=== PATIENT | female | born 1990 | race Caucasian/White ===

== ENCOUNTER 2019-08-08 02:11 | Emergency (ER) | payer OTHER ==
[2019-08-08 02:51] VITALS: BP 123/81; PULSE 92; TEMP 97.6; BMI 32.7
--- NOTE | 2019-08-08 02:52 | PDOC ---
History of Present Illness - General Chief Complaint: Vomiting/Diarrhea Stated Complaint: DIARRHEA/NAUSEA/STOMACH PAINS Time Seen by Provider: 08/08/19 02:51 History Source: Patient Exam Limitations: No Limitations - History of Present Illness Initial Comments: 08/08/19 03:04 28yF w PMHx anxiety presenting w nausea/vomiting/diarrhea/mild epigastric pain. Diarrhea started yesterday morning after taking Plan B. Subsequently started vomiting multiple times with mild epigastric pain yesterday evening. Had 1 alcoholic drink yesterday none day before. Denies fever, cough, chest pain, SOB , urinary complaints. Past History - Past Medical History Allergies/Adverse Reactions: Allergies Allergy/AdvReac Type Severity Reaction Status Date / Time No Known Allergies Allergy Verified 08/08/19 02:49 Home Medications: Ambulatory Orders Fluoxetine HCl [Prozac] 10 mg PO DAILY 08/08/19 Ondansetron [Zofran *Odt*] 4 mg SL TID #10 od.tablet 08/08/19 clonazePAM [Klonopin -] 0.5 mg PO DAILY 08/08/19 COPD: No Psychiatric Problems: Yes (anxiety, depression) - Psycho Social/Smoking Cessation Hx Smoking History: Never smoked Hx Alcohol Use: No Drug/Substance Use Hx: No Review of Systems - Review of Systems Constitutional: No: Chills, Fever HEENTM: No: Eye Pain, Nose Pain, Throat Pain Respiratory: No: Cough, Shortness of Breath Cardiac (ROS): No: Chest Pain, Palpitations ABD/GI: Yes: Diarrhea, Nausea, Vomiting. No: Abdominal Distended, Constipated : No: Burning, Dysuria Musculoskeletal: No: Back Pain, Joint Pain Integumentary: No: Bruising, Flushing Neurological: No: Headache, Seizure Psychiatric: No: Anxiety, Depression Endocrine: No: Excessive Sweating, Intolerance to Cold, Intolerance to Heat Hematologic/Lymphatic: No: Anemia, Blood Clots *Physical Exam - Vital Signs Last Vital Signs Temp Pulse Resp BP Pulse Ox 97.6 F 92 H 18 123/81 100 08/08/19 02:45 08/08/19 02:45 08/08/19 02:45 08/08/19 02:45 08/08/19 02:45 - Physical Exam General Appearance: Yes: Nourished, Appropriately Dressed, Mild Distress HEENT: positive: EOMI, MARKY, Normal Voice, Hearing Grossly Normal. negative: Scleral Icterus (R), Scleral Icterus (L) Respiratory/Chest: positive: Lungs Clear, Normal Breath Sounds. negative: Chest Tender, Respiratory Distress Cardiovascular: positive: Regular Rhythm, S1, S2, Tachycardia. negative: Edema , Murmur Gastrointestinal/Abdominal: positive: Normal Bowel Sounds, Tender (minimal epigastric), Flat, Soft. negative: Organomegaly Musculoskeletal: negative: CVA Tenderness (R), CVA Tenderness (L) Extremity: positive: Delayed Capillary Refill Integumentary: positive: Normal Color, Dry Neurologic: positive: paper bag maker II-XII NML intact, Fully Oriented, Alert, Normal Response, Responsive. negative: Sensory Deficit, Confused, Disoriented ED Treatment Course - LABORATORY CBC & Chemistry Diagram: 08/08/19 04:05 08/08/19 05:00 Medical Decision Making - Medical Decision Making 08/08/19 04:14 28yF w PMHx anxiety presenting w 1d nausea/vomiting/diarrhea/mild epigastric pain. Gastroenteritis. Low concern for (recently took Plan B, neg HCG) vs cholecystitis (neg rios) vs pancreatitis (normal lipase) Given 1L NS, zofran, pepcid, maalox DC home w zofran Discharge - Discharge Information Problems reviewed: Yes Clinical Impression/Diagnosis: Gastroenteritis Condition: Improved Disposition: HOME - Admission No - Additional Discharge Information Prescriptions: Ondansetron [Zofran *Odt*] 4 mg SL TID #10 od.tablet - Follow up/Referral - Patient Discharge Instructions Patient Printed Discharge Instructions: DI for Viral Gastroenteritis -- Adult Additional Instructions: Take the prescribed zofran if you are vomiting Drink lots of water - Post Discharge Activity
--- NOTE | 2019-08-08 02:55 | PDOC ---
Attending Attestation - Resident Resident Name: [email or web address] - ED Attending Attestation I have performed the following: I have examined & evaluated the patient, The case was reviewed & discussed with the resident, I agree w/resident's findings & plan - HPI HPI: 08/08/19 02:59 Pt comes with vomiting after taking plan B OTC; Now N/V 08/08/19 03:04 - Physicial Exam PE: 08/08/19 06:42 Pt has normal bowel sounds; no rebound and no guarding No flank pain no fever no chills Pt has normal HEENT neuro intact; no rahses - Medical Decision Making 08/08/19 06:43 Pt will be sent home with oral hydration. She has normal labs bhcg is <1
[2019-08-08] MEDS ORDERED: SODIUM CHLORIDE 0.9% 500 ML INFUS.BAG IV ONE (03:01)
[2019-08-08] MEDS ORDERED: FAMOTIDINE 20 MG/50 ML IVPB 20 MG/50 ML MG IVPB ONE ×2 (03:01→04:02)
[2019-08-08] MEDS ORDERED: ONDANSETRON 4 MG/2 ML VIAL IVPUSH ONE (03:01)
[2019-08-08] MEDS ORDERED: MAG HYDROX/AL HYDROX/SIMETH 30 ML UNIT-DOSE CUP PO ONE (03:01)
[2019-08-08] MEDS ORDERED: ONDANSETRON 4 MG/2 ML VIAL ONE (04:02)
[2019-08-08] MEDS ORDERED: MAG HYDROX/AL HYDROX/SIMETH 30 ML UNIT-DOSE CUP ONE (04:02)
[2019-08-08 04:24] LABS: BASO % 0.1 % (0-2.0); EOS % 2.7 % (0-4.5); HEMATOCRIT 43.4 % (32.4-45.2); HEMOGLOBIN 14.8 GM/dL (10.7-15.3); LYMPH % 8.3 % (8-40); MCH 33.7 pg (25.7-33.7); MCHC 34.2 g/dl (32.0-36.0); MEAN CELL VOLUME 98.7 fl (80-96); MEAN PLT VOLUME 8.4 fl (7.5-11.1); MONO % 4.7 % (3.8-10.2); NEUT % 84.2 % (42.8-82.8); PLATELET COUNT 268 K/MM3 (134-434); RDW 13.5 % (11.6-15.6); WHITE BLOOD COUNT 9.5 K/mm3 (4.0-10.0)
[2019-08-08 06:09] LABS: BILIRUBIN,TOTAL 0.5 mg/dL (0.2-1); CALCIUM 8.3 mg/dL (8.5-10.1); CREATININE 0.7 mg/dL (0.55-1.3); POTASSIUM 4.4 mmol/L (3.5-5.1)
== END 2019-08-08 06:54 | disposition home or self-care (01) ==
LOC: JER 02:11
PROC: 3E033GC Introduction of Other Therapeutic Substance into Peripheral Vein, Percutaneous Approach (ICD-10-PCS; principal; 2019-08-08)
PROC: 3E033GC Introduction of Other Therapeutic Substance into Peripheral Vein, Percutaneous Approach (ICD-10-PCS; 2019-08-08)
DX: K52.9 Noninfective gastroenteritis and colitis, unspecified (principal)
CPT/HCPCS: 36415; 80053; 83690; 84702; 85025; 87086; 96365; 96375; 99282-25

== ENCOUNTER 2022-09-17 08:27 | Inpatient (IN) | payer OTHER ==
[2022-09-17 09:01] VITALS: BMI 33.0
[2022-09-17] MEDS ORDERED: LOPERAMIDE HCL 2 MG CAPSULE PO PRN (09:21)
[2022-09-17] MEDS ORDERED: guaiFENesin 600 MG TABLET.ER (FP) PO PRN (09:21)
[2022-09-17] MEDS ORDERED: ONDANSETRON *ODT* 4 MG TABLET SL PRN (09:21)
[2022-09-17] MEDS ORDERED: MAG HYDROX/AL HYDROX/SIMETH 30 ML UNIT-DOSE CUP PO PRN (09:21)
[2022-09-17] MEDS ORDERED: BENZOCAINE/MENTHOL (CHLORASEPTIC ) LOZENGE MM PRN (09:21)
[2022-09-17] MEDS ORDERED: ACETAMINOPHEN 325 MG TABLET (FP) PO PRN (09:21)
[2022-09-17] MEDS ORDERED: BENZONATATE 200 MG CAPSULE PO PRN (09:21)
[2022-09-17] MEDS ORDERED: DICYCLOMINE HCL 10 MG CAPSULE PO PRN (09:21)
[2022-09-17] MEDS ORDERED: diazePAM 5 MG TABLET PO PRN (09:21)
[2022-09-17] MEDS ORDERED: MAGNESIUM HYDROX 2400MG/30ML ORAL SUSPENSION 30 ML CUP PO PRN (09:21)
[2022-09-17] MEDS ORDERED: IBUPROFEN 600 MG TABLET (FP) PO PRN (09:21)
[2022-09-17] MEDS ORDERED: hydrOXYzine PAMOATE 25 MG CAPSULE (FP) PO PRN (09:21)
[2022-09-17] MEDS ORDERED: IBUPROFEN 400 MG TABLET (FP) PO PRN (09:21)
[2022-09-17] MEDS ORDERED: POLYETHYLENE GLYCOL (HEALTHYLAX) 3350 17 GM PACKET PO PRN (09:21)
[2022-09-17] MEDS ORDERED: BISMUTH SUBSALICYLATE 524 MG/30 ML PO PRN (09:21)
[2022-09-17] MEDS ORDERED: diazePAM 5 MG TABLET ONE (11:00)
[2022-09-17] MEDS ORDERED: PRENATAL VITAMINS W/ FOLIC ACID TABLET (FP) PO ONE (11:01)
[2022-09-17] MEDS: diazePAM 5 MG TABLET PO SCH ×3 (11:03→22:45)
[2022-09-17] MEDS: PRENATAL VITAMINS W/ FOLIC ACID TABLET (FP) PO SCH (11:03)
[2022-09-17 14:47] LABS: HEMATOCRIT 41.7 % (32.4-45.2); HEMOGLOBIN 14.5 GM/dL (10.7-15.3); MCH 34.1 pg (25.7-33.7); MCHC 34.7 g/dl (32.0-36.0); MEAN CELL VOLUME 98.3 fl (80-96); MEAN PLT VOLUME 7.9 fl (7.5-11.1); PLATELET COUNT 362 10^3/uL (134-434); RBC 4.24 M/mm3 (3.60-5.2); RDW 13.4 % (11.6-15.6); WHITE BLOOD COUNT 8.4 K/mm3 (4.0-10.0)
[2022-09-17 14:48] LABS: ALBUMIN 4.2 g/dl (3.4-5.0); BLOOD UREA NITROGEN 10.9 mg/dL (7-18)
[2022-09-17 14:51] LABS: CREATININE 0.8 mg/dL (0.55-1.3)
[2022-09-17 14:53] LABS: BILIRUBIN,TOTAL 0.4 mg/dL (0.2-1); TOT PROT 7.6 g/dl (6.4-8.2)
[2022-09-17] MEDS ORDERED: SUVOREXANT 10 MG TABLET PO PRN (20:00)
[2022-09-17] MEDS: METHOCARBAMOL 500 MG TABLET PO PRN (20:39)
[2022-09-17] MEDS ORDERED: THIAMINE HCL 100 MG TABLET (FP) PO SCH (22:00)
[2022-09-17] MEDS ORDERED: MELATONIN 5 MG TABLETS PO SCH (22:00)
[2022-09-18] MEDS: diazePAM 5 MG TABLET PO SCH ×3 (05:28→18:32)
[2022-09-18 09:29] VITALS: RESP 18
[2022-09-18] MEDS ORDERED: FLUoxetine HCL 20 MG CAPSULE PO SCH (10:00)
[2022-09-18] MEDS: PRENATAL VITAMINS W/ FOLIC ACID TABLET (FP) PO SCH (11:09)
[2022-09-18] MEDS: METHOCARBAMOL 500 MG TABLET PO PRN (11:10)
[2022-09-18 18:20] VITALS: BP 128/77; PULSE 69; TEMP 98
[2022-09-19] MEDS ORDERED: diazePAM 5 MG TABLET PO SCH (06:00)
[2022-09-20] MEDS ORDERED: diazePAM 5 MG TABLET PO SCH (06:00)
[2022-09-21] MEDS ORDERED: diazePAM 5 MG TABLET PO ONE (06:00)
== END 2022-09-18 17:31 | disposition left against medical advice (07) | DRG 770 ==
LOC: YASAS 08:27 → Y6N 10:20
PROVIDERS: ADMIT Allergy & Immunology; ATTEND Surgery
PROC: HZ2ZZZZ Detoxification Services for Substance Abuse Treatment (ICD-10-PCS; principal; 2022-09-17)
DX: F10.230 Alcohol dependence with withdrawal, uncomplicated (principal); F13.230 Sedative, hypnotic or anxiolytic dependence with withdrawal, uncomplicated; F14.20 Cocaine dependence, uncomplicated; F12.20 Cannabis dependence, uncomplicated; F19.282 Other psychoactive substance dependence with psychoactive substance-induced sleep disorder; F19.280 Other psychoactive substance dependence with psychoactive substance-induced anxiety disorder; F41.8 Other specified anxiety disorders; Z86.69 Personal history of other diseases of the nervous system and sense organs; Z91.410 Personal history of adult physical and sexual abuse; Z88.2 Allergy status to sulfonamides
CPT/HCPCS: 36415; 80053; 81025; 85027; 86780; 87811; 93005; 93010; C9803-CS; U0003; U0005

== ENCOUNTER 2022-12-22 13:17 | Inpatient (IN) | payer OTHER ==
[2022-12-22 13:27] VITALS: BMI 30.4
[2022-12-22 14:55] LABS: BASO % 0.4 % (0-2.0); EOS % 2.6 % (0-4.5); HEMATOCRIT 39.6 % (32.4-45.2); HEMOGLOBIN 13.4 GM/dL (10.7-15.3); LYMPH % 43.1 % (8-40); MCH 32.2 pg (25.7-33.7); MCHC 33.8 g/dl (32.0-36.0); MEAN CELL VOLUME 95.2 fl (80-96); MEAN PLT VOLUME 7.3 fl (7.5-11.1); MONO % 5.2 % (3.8-10.2); NEUT % 48.7 % (42.8-82.8); PLATELET COUNT 356 10^3/uL (134-434); RBC 4.16 M/mm3 (3.60-5.2); RDW 13.5 % (11.6-15.6); WHITE BLOOD COUNT 8.5 K/mm3 (4.0-10.0)
[2022-12-22 14:59] LABS: EPI CELLS >36 /uL (0-25.1); HYALINE CASTS 1 /uL (0-3.1); URINE APPEARANCE CLEAR; URINE BACTERIA 2889 /uL (0-1359); URINE BILIRUBIN NEGATIVE (NEGATIVE); URINE COLOR YELLOW; URINE GLUCOSE (UA) NEGATIVE (NEGATIVE); URINE KETONE 1+ (NEGATIVE); URINE LEUK ESTERASE TRACE (NEGATIVE); URINE NITRITE NEGATIVE (NEGATIVE); URINE PROTEIN NEGATIVE (NEGATIVE); URINE RBC 8 /uL (0-23.9); URINE UROBILINOGEN 0.2 mg/dL (0.2-1.0); URINE WBC 34 /uL (0-25.8)
[2022-12-22] MEDS ORDERED: LORazepam 2 MG TABLET PO ONE (15:01)
[2022-12-22] MEDS ORDERED: LORazepam 2 MG/ML SDV VIAL IVPUSH ONE (15:01)
[2022-12-22 15:02] LABS: INR 1.07 (0.83-1.09); PROTHROMBIN TIME (PATIENT) 12.4 SEC (9.7-13.0)
[2022-12-22 15:05] LABS: ACTIVATED PTT 35.4 SECONDS (25.2-36.5)
[2022-12-22 15:06] LABS: COCAINE, UR NEGATIVE (NEGATIVE); METHADONE, UR NEGATIVE (NEGATIVE); OPIATES, URI NEGATIVE (NEGATIVE); PHENCYCLIDINE,URINE NEGATIVE (NEGATIVE); URINE BARBITURATES NEGATIVE (NEGATIVE)
[2022-12-22 15:07] LABS: CHLORIDE 108 mmol/L (98-107); POTASSIUM 4.3 mmol/L (3.5-5.1); SODIUM 140 mmol/L (136-145)
[2022-12-22 15:09] LABS: ALBUMIN 3.8 g/dl (3.4-5.0); ANION GAP 9 MMOL/L (8-16); BLOOD UREA NITROGEN 16.9 mg/dL (7-18); CO2 24 mmol/L (21-32); GLUCOSE,RANDOM 77 mg/dL (74-106)
[2022-12-22 15:12] LABS: CREATININE 0.6 mg/dL (0.55-1.3); SGOT/AST 16 U/L (15-37); SGPT/ALT 18 U/L (13-61)
[2022-12-22] MEDS ORDERED: LORazepam 0.5 MG TABLET ONE (15:13)
[2022-12-22 15:14] LABS: BILIRUBIN,TOTAL 0.5 mg/dL (0.2-1); TOT PROT 6.9 g/dl (6.4-8.2); URINE AMPHETAMINES NEGATIVE (NEGATIVE); URINE BENZODIAZEPINES POSITIVE (NEGATIVE)
[2022-12-22 15:15] LABS: ALK PHOS 49 U/L (45-117)
[2022-12-22] MEDS ORDERED: HALOPERIDOL LACTATE 5 MG/ML IM ONE ×2 (15:26→15:27)
[2022-12-22] MEDS ORDERED: NITROFURANTOIN MACROCRYSTAL 50 MG CAPSULE (FP) PO SCH ×2 (15:45→20:15)
[2022-12-22] MEDS ORDERED: NITROFURANTOIN MACROCRYSTAL 50 MG CAPSULE (FP) PO ONE (20:15)
[2022-12-22] MEDS: traZODone HCL 100 MG TABLET (FP) PO SCH (22:42)
[2022-12-22] MEDS ORDERED: LORazepam 2 MG/ML SDV VIAL IVPUSH PRN ×2 (23:23→23:25)
[2022-12-23] MEDS: HALOPERIDOL LACTATE 5 MG/ML IM PRN (02:56)
[2022-12-23] MEDS ORDERED: LORazepam 2 MG/ML SDV VIAL IVPUSH ONE (05:59)
[2022-12-23] MEDS ORDERED: LORazepam 2 MG/ML SDV VIAL IM ONE (06:15)
[2022-12-23 07:02] LABS: HEMOGLOBIN 13.9 GM/dL (10.7-15.3); MCH 32.9 pg (25.7-33.7); MCHC 33.9 g/dl (32.0-36.0); MEAN CELL VOLUME 97.3 fl (80-96); MEAN PLT VOLUME 7.7 fl (7.5-11.1); PLATELET COUNT 368 10^3/uL (134-434); RBC 4.21 M/mm3 (3.60-5.2); RDW 13.7 % (11.6-15.6); WHITE BLOOD COUNT 7.5 K/mm3 (4.0-10.0)
[2022-12-23 07:50] LABS: POTASSIUM 4.4 mmol/L (3.5-5.1)
[2022-12-23 07:58] LABS: CALCIUM 8.9 mg/dL (8.5-10.1)
[2022-12-23 07:59] LABS: BLOOD UREA NITROGEN 15.1 mg/dL (7-18)
[2022-12-23 08:03] LABS: CREATININE 0.7 mg/dL (0.55-1.3)
[2022-12-23] MEDS ORDERED: NITROFURANTOIN MACROCRYSTAL 50 MG CAPSULE (FP) ONE (08:44)
[2022-12-23] MEDS: FLUoxetine HCL 20 MG CAPSULE PO SCH (09:54)
[2022-12-23] MEDS ORDERED: NITROFURANTOIN MACROCRYSTAL 50 MG CAPSULE (FP) PO ONE (10:00)
[2022-12-23] MEDS ORDERED: LORazepam 2 MG TABLET PO ONE (11:24)
[2022-12-23] MEDS ORDERED: LORazepam 1 MG TABLET ONE (11:25)
[2022-12-23] MEDS: LORazepam 2 MG/ML SDV VIAL IM PRN (21:21)
[2022-12-23] MEDS: traZODone HCL 100 MG TABLET (FP) PO SCH (21:21)
[2022-12-24 05:42] VITALS: BP 118/57; PULSE 88; RESP 18; TEMP 98.4
[2022-12-24] MEDS: FLUoxetine HCL 20 MG CAPSULE PO SCH ×2 (08:48→09:24)
[2022-12-24] MEDS: LORazepam 2 MG/ML SDV VIAL IM PRN (08:49)
[2022-12-24] MEDS: HALOPERIDOL LACTATE 5 MG/ML IM PRN (11:28)
[2022-12-24] MEDS ORDERED: ACETAMINOPHEN 325 MG TABLET (FP) PO PRN (12:22)
== END 2022-12-24 13:56 | disposition home or self-care (01) | DRG 760 ==
LOC: JER 13:17 → OBSVTOIN 19:40 → JERBED 19:40 → J4S 12-23 20:12
PROVIDERS: ADMIT Internal Medicine; ATTEND Internal Medicine
DX: R45.1 Restlessness and agitation (principal); F23 Brief psychotic disorder; F41.8 Other specified anxiety disorders; T40.411A Poisoning by fentanyl or fentanyl analogs, accidental (unintentional), initial encounter; F11.20 Opioid dependence, uncomplicated; F31.9 Bipolar disorder, unspecified; K21.9 Gastro-esophageal reflux disease without esophagitis; G40.89 Other seizures; F13.20 Sedative, hypnotic or anxiolytic dependence, uncomplicated; Y92.098 Other place in other non-institutional residence as the place of occurrence of the external cause
CPT/HCPCS: 36415; 80048; 80053; 80307; 81003; 84443; 84484; 84703; 85025; 85027; 85610; 85730; 86850; 86900; 86901; 87086; 93005; 93010; 99285-25; G0480